=== PATIENT | male | born 2000 | race Caucasian/White ===

== ENCOUNTER 2024-10-15 09:12 | Emergency (ER) | payer BC, SELFPAY ==
--- NOTE | 2024-10-15 09:14 | ED.EAR ---
HPI - Ear Problem General Chief complaint: Ear Stated complaint: Ear Pain Time Seen by Provider: 10/15/24 09:28 Source: patient and RN notes reviewed Mode of arrival: ambulatory Limitations: no limitations History of Present Illness HPI Narrative: 24-year-old male presents concern for foreign body in his right ear. He reports he slept with an ear bud in his ear and woke up in the rumor part of the ear bud was not on the ear but itself. He reports slightly muscle hearing. Denies any pain or drainage. Reports he tried to remove with tweezers without success. MD Complaint: ear pain Review of Systems Review of Systems: CONSTITUTIONAL: Denies malaise, chills, sweats, or fever. EYES: Denies visual changes, redness, or discharge. ENT: Denies rhinorrhea, congestion, sinus pain, and sore throat. Reports foreign body in the right ear CARDIOVASCULAR: Denies chest pain, palpitations, or edema. RESPIRATORY: Denies cough. Denies dyspnea. GASTROINTESTINAL: Denies abdominal pain, nausea, vomiting, diarrhea SKIN: Denies rash or itching. MUSCULOSKELETAL: Denies myalgia. NEUROLOGIC: Denies headache. All systems reviewed & are unremarkable except as noted in HPI and below PMFSH Comments At time of signature, agree with nursing past medical, surgical, social and family history. There is no relevant family history pertinent to the presenting complaint Exam Narrative: GENERAL: Well-appearing, well-nourished, and in no acute distress. HEAD: Normocephalic EYES: PERRLA, conjunctivae clear ENT: Nares clear. Mucous membranes moist. TM pearly churchill with sharp light reflex bilaterally; no tragal tenderness, EAC unremarkable. Foreign body noted in the right ear canal. No post or pre-auricular erythema, induration, or warmth noted. Oropharynx not erythematous without lesions. Tonsils not enlarged and without exudate, no drooling, no hoarseness, no trismus, uvula midline. NECK: Supple. No lymphadenopathy CHEST: Clear to auscultation, breath sounds equal. No wheezing, rhonchi, rales, or stridor. No respiratory distress, speaks in full sentences. HEART: Regular rate and rhythm. No murmur heard. SKIN: Warm, dry, no rash. NEURO: Alert and oriented x3. PSYCH: Normal mood and affect Course Course Emergency Course: Patient is aware of diagnosis, understands and agrees to treatment plan. Anticipatory guidance given. Patient agrees to follow-up as directed and is aware of reasons to seek care at the emergency department. Portions of this record may have been created with voice recognition software Level of Care: [facility] Emergency Department Visit Vital Signs Vital signs: Reviewed. Procedures FB Removal Ear Foreign Body #1: Foreign Body Removal Date: 10/15/24 Foreign Body Removal Time: 09:44 Location: ear canal (R) Foreign Body Suspected: other plastic TM intact pre-procedure: yes Foreign Body Removed: yes Foreign Body Removal Technique: instrumentation Tympanic Membrane Intact Post Procedure: Yes Patient Tolerated Procedure: well Complications: none Medical Decision Making MDM Narrative Medical decision making narrative: I evaluated this in the [facility]. History is obtained from patient who is an independent historian and physical exam was performed.? Available medical records were reviewed. ? Exam findings and relevant testing show no acute concerns or changes; patient is non-toxic appearing and is in no distress. Differential diagnosis considered: Simon virus, strep pharyngitis, allergic rhinitis, upper respiratory tract infection, sinusitis, rhinosinusitis, nasopharyngitis. viral pharyngitis, otitis media, otitis externa, otitis effusion, pre/post auricular cellulitis, mastoiditis, cerumen impaction, foreign body. Exam findings show no acute concerns or changes; patient is non-toxic appearing and is in no distress. Patient is appropriate for outpatient treatment and follow-up. ? Differential diagnosis and treatment plan were discussed with the patient. Patient agrees with discussion and after shared medical decision making agrees with plan of care. All questions were answered to the patient's satisfaction. Patient is appropriate for outpatient treatment and follow-up. Critical Care Time Critical Care Time Critical Care Time: No Discharge Plan Discharge Clinical Impression: Foreign body in right ear Patient Disposition: Home Condition: Stable Instructions: Ear Foreign Body (ED) Additional Instructions: 1) Please follow-up with your primary care doctor as needed. 2) If you have any urgent concerns please go to the ER. 3) Please continue taking your home medications as usual. 4) Please read and follow information included in discharge instructions. Patient Language: Kinyarwanda Follow-up/Referrals: UNKNOWN,DOCTOR [Non-Staff] - Time of Disposition: 09:36
[2024-10-15 09:20] VITALS: BP 134/81; PULSE 67; RESP 20; TEMP 36.4; O2SAT 99
== END 2024-10-15 09:44 | disposition home or self-care (01) ==
PROVIDERS: Emergency Provider Nurse Practitioner
DX: T16.1XXA Foreign body in right ear, initial encounter (principal); W44.G1XA Audio device entering into or through a natural orifice, initial encounter
CPT/HCPCS: 69200; 99212; G0463